=== PATIENT | female | born 2000 | race Hispanic/Latino ===

== ENCOUNTER 2021-08-28 18:58 | Emergency (ER) | payer MEDICAID ==
[~2021-08-28] VITALS: Ht 144.8 cm; Wt 43.1 kg
[2021-08-28 20:12] VITALS: BP 106/67
[2021-08-28] MEDS ORDERED: SULF1TAB42 PO (20:13)
[2021-08-28] MEDS ORDERED: SULFAMETHOX-TMP DS 800/160 TAB PO SCH (21:15)
== END 2021-08-28 20:20 | disposition home or self-care (01) ==
LOC: EDH 18:58
DX: L02.01 Cutaneous abscess of face (principal)
CPT/HCPCS: 10060